=== PATIENT | male | born 1950 | race Asian ===

== ENCOUNTER 2019-02-14 11:52 | Emergency (ER) | payer OTHER, MEDICAID, MEDICARE ==
[2019-02-14] MEDS: IPRATROPIUM (NEB) 0.5 MG/2.5 ML AMP INH ×2 (12:10→16:25)
[2019-02-14] MEDS: LEVALBUTEROL (NEB) 1.25 MG/0.5 ML AMP INH ×2 (12:10→16:24)
[2019-02-14] MEDS: METHYLPREDNISOLONE 125 MG INJ IV (12:11)
[2019-02-14 12:29] LABS: ADD MAN DIFF? NO
[2019-02-14 12:32] LABS: WHITE BLOOD COUNT 5.5 10^3/ul (4.8-10.8)
[2019-02-14 12:32] LABS: BASOPHIL # 0.1 10^3/ul (0.0-0.1); BASOPHILS % 1.1 % (0.0-2.0); EOSINOPHILS # 0.2 10^3/ul (0.0-0.5); EOSINOPHILS % 4.2 % (0.0-7.0); HEMATOCRIT 38.3 % (42.0-52.0); HEMOGLOBIN 12.9 g/dl (14.0-18.0); LYMPHOCYTES # 1.5 10^3/ul (0.8-2.9); LYMPHOCYTES % 27.3 % (15.0-51.0); MEAN CORPUSCULAR HEMOGLOBIN 37.1 pg (29.0-33.0); MEAN CORPUSCULAR HGB CONC 33.7 g/dl (32.0-37.0); MEAN CORPUSCULAR VOLUME 110.1 fl (82.0-101.0); MEAN PLATELET VOLUME 11.4 fl (7.4-10.4); MONOCYTES % 17.6 % (0.0-11.0); NEUTROPHIL # 2.7 10^3/ul (1.6-7.5); NEUTROPHILS % 49.4 % (39.0-77.0); PLATELET COUNT 119 10^3/UL (140-415); RED BLOOD COUNT 3.48 10^6/ul (4.70-6.10); RED CELL DISTRIBUTION WIDTH 12.7 % (11.5-14.5)
[2019-02-14 12:52] LABS: INR 0.94; PROTIME 12.7 Sec (11.9-14.9)
[2019-02-14 12:53] LABS: PARTIAL THROMBOPLASTIN TIME 32.4 Sec (23.0-35.0)
[2019-02-14 13:01] LABS: ALANINE AMINOTRANSFERASE 32 IU/L (13-69); ALBUMIN 3.8 g/dl (3.3-4.9); ALBUMIN/GLOBULIN RATIO 1.35; ALKALINE PHOSPHATASE 74 IU/L (42-121); ANION GAP 17 (5-13); ASPARTATE AMINO TRANSFERASE 30 IU/L (15-46); BILIRUBIN,INDIRECT 0.2 mg/dl (0-1.1); BILIRUBIN,TOTAL 0.2 mg/dl (0.2-1.3); BLOOD UREA NITROGEN 80 mg/dl (7-20); CALCIUM 9.3 mg/dl (8.4-10.2); CARBON DIOXIDE 20 mmol/L (21-31); CHLORIDE 106 mmol/L (97-110); CREATININE 9.48 mg/dl (0.61-1.24); Estimated GFR 6 mL/min (>60); GLUCOSE 139 mg/dl (70-220); POTASSIUM 4.3 mmol/L (3.5-5.1); SODIUM 143 mmol/L (135-144); TOTAL PROTEIN 6.6 g/dl (6.1-8.1)
[2019-02-14 13:11] LABS: TROPONIN-I 0.075 ng/ml (0.000-0.120)
[2019-02-14 14:07] LABS: Allen Test ACCEPTAB; Arterial Base Excess -7.5 mmol/L (-3.0-3); Arterial Blood Gas Oxygen Sat 91.9 mmHG (95.0-98.0); Arterial COHb 0.6 % (0.0-3.0); Arterial Fraction of Oxyhgb 91.3 % (93.0-99.0); Arterial HCO3 17.7 mmol/L (22.0-26.0); Arterial MetHb 0.1 % (0.0-1.5); Arterial pCO2 35.2 mmhg (35-45); MODE ROOM AIR; Site Right Radial
[2019-02-14 14:39] LABS: LACTIC ACID 0.8 mmol/L (0.5-2.0)
[2019-02-14] MEDS: hydrALAzine 20 MG INJ IV ×4 (16:07→20:18)
[2019-02-14 16:26] LABS: LACTIC ACID 0.9 mmol/L (0.5-2.0)
== END 2019-02-14 20:08 | disposition short-term general hospital (02) ==
LOC: E/R 20:08
DX: J45.901 Unspecified asthma with (acute) exacerbation (principal); D64.9 Anemia, unspecified; D69.6 Thrombocytopenia, unspecified; N18.6 End stage renal disease; I12.0 Hypertensive chronic kidney disease with stage 5 chronic kidney disease or end stage renal disease; Z87.891 Personal history of nicotine dependence; Z99.2 Dependence on renal dialysis
CPT/HCPCS: 36415; 36600; 71045; 80053; 82803; 83605; 84484; 85025; 85610; 85730; 87040-91; 93005; 94644; 94645; 96374; 96375; 96376; 99285-25